=== PATIENT | female | born 1995 | race Caucasian/White ===

== ENCOUNTER 2017-01-03 13:35 | Emergency (ER) | payer MEDICAID ==
[2017-01-03 13:41] VITALS: BP 133/91
[2017-01-03 15:32] LABS: BASOPHIL % 0.5 % (0-2); PLATELET COUNT 317 x10^3mcL (130-400)
== END 2017-01-03 17:06 | disposition home or self-care (01) ==
LOC: ED 13:35
PROVIDERS: Emergency Medicine
DX: N93.9 Abnormal uterine and vaginal bleeding, unspecified (principal); N92.1 Excessive and frequent menstruation with irregular cycle; F12.90 Cannabis use, unspecified, uncomplicated
CPT/HCPCS: 36415